=== PATIENT | male | born 1950 | race Caucasian/White ===

== ENCOUNTER → 2016-08-11 | Outpatient (CLI) | payer OTHER ==
--- NOTE | 2016-08-12 12:40 | XCELERA REPORT ---
[address] [address] Lower Extremity Arterial Evaluation Name: ANGELIQUE CORNEJO Age: 66 yrs Gender: Male : 1950 Patient Status: Outpatient Patient Location: Study Date: 08/11/2016 11:07 AM Procedure: A color flow and duplex scan of the lower extremity arteries was performed bilaterally with velocity and waveform anaylsis. Ankle brachial indicies performed. PPG's performed. 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 The ankle-brachial index is 1.07. Non compressible at the Posterior Tibial artery. 0 stenosis noted. PPG's are normal. Left Side Arterial Evaluation Normal velocity, waveform and triphasic flow are present, from the Common Femoral artery down to the infrageniculate vessels. The ankle-brachial index is 1.07. 0 stenosis noted. PPG's are normal. Interpretation Summary No hemodynamically significant lesions in the bilateral lower extremities, on duplex imaging, at rest. One non compressible vessel on the right ,is suggestive of Arteriosclerosis. : FROY HUI [place]
== END ==
LOC: SP 10:32
PROVIDERS: ATTEND Podiatrist Foot Surgery
DX: I70.25 Atherosclerosis of native arteries of other extremities with ulceration (principal)
CPT/HCPCS: 93925